=== PATIENT | male | born 1975 | race Caucasian/White ===

== ENCOUNTER 2017-04-22 12:56 | Emergency (ER) | payer MEDICARE, OTHER ==
[2017-04-22] MEDS: ONDANSETRON 4 MG INJ IV ×2 (17:36→21:48)
[2017-04-22] MEDS: morphine 4 MG/ML VIAL IV (17:36)
[2017-04-22 18:03] LABS: ADD MAN DIFF? NO
[2017-04-22 18:05] LABS: ABNORMAL IP MESSAGE 1; BASOPHILS % 0.5 % (0.0-2.0); EOSINOPHILS % 0.2 % (0.0-7.0); HEMATOCRIT 33.4 % (42.0-52.0); HEMOGLOBIN 10.8 g/dl (14.0-18.0); LYMPHOCYTES # 0.3 10^3/ul (0.8-2.9); LYMPHOCYTES % 5.7 % (15.0-51.0); MEAN CORPUSCULAR HEMOGLOBIN 30.7 pg (29.0-33.0); MEAN CORPUSCULAR HGB CONC 32.3 g/dl (32.0-37.0); MEAN CORPUSCULAR VOLUME 94.9 fl (82.0-101.0); MEAN PLATELET VOLUME 11.5 fl (7.4-10.4); MONOCYTE # 0.4 10^3/ul (0.3-0.9); MONOCYTES % 7.3 % (0.0-11.0); NEUTROPHIL # 5.2 10^3/ul (1.6-7.5); PLATELET COUNT 120 10^3/UL (140-415); POSITIVE DIFF @See below; RED BLOOD COUNT 3.52 10^6/ul (4.70-6.10); RED CELL DISTRIBUTION WIDTH 13.3 % (11.5-14.5)
[2017-04-22 18:22] LABS: ALANINE AMINOTRANSFERASE 30 IU/L (13-69); ALBUMIN 4.6 g/dl (3.3-4.9); ALBUMIN/GLOBULIN RATIO 1.48; ALKALINE PHOSPHATASE 166 IU/L (42-121); ANION GAP 23 (8-16); ASPARTATE AMINO TRANSFERASE 20 IU/L (15-46); BILIRUBIN,INDIRECT 0.1 mg/dl (0-1.1); BILIRUBIN,TOTAL 0.1 mg/dl (0.2-1.3); BLOOD UREA NITROGEN 48 mg/dl (7-20); CALCIUM 8.4 mg/dl (8.4-10.2); CARBON DIOXIDE 26 mmol/L (21-31); CHLORIDE 100 mmol/L (97-110); CREATININE 9.37 mg/dl (0.61-1.24); GLUCOSE 107 mg/dl (70-220); LIPASE 38 U/L (23-300); POTASSIUM 4.6 mmol/L (3.5-5.1); SODIUM 144 mmol/L (135-144); TOTAL PROTEIN 7.7 g/dl (6.1-8.1)
[2017-04-22 18:26] LABS: LACTIC ACID 1.4 mmol/L (0.5-2.0)
[2017-04-22 18:34] LABS: TROPONIN-I 0.024 ng/ml (0.00-0.12)
[2017-04-22] MEDS: LIDOCAINE/MYLANTA 40 ML BTL PO (21:49)
== END 2017-04-22 22:54 | disposition home or self-care (01) ==
LOC: FTE 12:56
DX: K21.9 Gastro-esophageal reflux disease without esophagitis (principal); I50.9 Heart failure, unspecified; R16.2 Hepatomegaly with splenomegaly, not elsewhere classified; I10 Essential (primary) hypertension
CPT/HCPCS: 36415; 74176; 80053; 83605; 83690; 84484; 85025; 93005; 96374; 96375; 96376; 99285-25

== ENCOUNTER 2017-06-12 18:39 | Emergency (ER) | payer MEDICARE, OTHER ==
[2017-06-12 22:18] LABS: ADD MAN DIFF? NO
[2017-06-12 22:21] LABS: ABNORMAL IP MESSAGE 1; BASOPHILS % 0.3 % (0.0-2.0); EOSINOPHILS % 0.2 % (0.0-7.0); HEMATOCRIT 25.6 % (42.0-52.0); HEMOGLOBIN 8.7 g/dl (14.0-18.0); LYMPHOCYTES # 0.6 10^3/ul (0.8-2.9); MEAN CORPUSCULAR HEMOGLOBIN 31.6 pg (29.0-33.0); MEAN CORPUSCULAR VOLUME 93.1 fl (82.0-101.0); MEAN PLATELET VOLUME 10.6 fl (7.4-10.4); MONOCYTE # 0.7 10^3/ul (0.3-0.9); MONOCYTES % 6.9 % (0.0-11.0); NEUTROPHIL # 8.4 10^3/ul (1.6-7.5); NEUTROPHILS % 86.2 % (39.0-77.0); PLATELET COUNT 155 10^3/UL (140-415); POSITIVE DIFF @See below; RED BLOOD COUNT 2.75 10^6/ul (4.70-6.10); RED CELL DISTRIBUTION WIDTH 13.5 % (11.5-14.5)
[2017-06-12 22:21] LABS: WHITE BLOOD COUNT 9.7 10^3/ul (4.8-10.8)
[2017-06-12] MEDS: morphine 4 MG/ML VIAL IV ×2 (22:31→22:49)
[2017-06-12] MEDS: ONDANSETRON 4 MG INJ IV ×2 (22:31→22:49)
[2017-06-12] MEDS: SOD CHLORIDE 0.9% 1,000 ML IV (22:32)
[2017-06-12 22:45] LABS: ALANINE AMINOTRANSFERASE 26 IU/L (13-69); ALBUMIN 4.4 g/dl (3.3-4.9); ALBUMIN/GLOBULIN RATIO 1.33; ALKALINE PHOSPHATASE 155 IU/L (42-121); ANION GAP 29 (8-16); ASPARTATE AMINO TRANSFERASE 20 IU/L (15-46); BILIRUBIN,INDIRECT 0.2 mg/dl (0-1.1); BILIRUBIN,TOTAL 0.2 mg/dl (0.2-1.3); BLOOD UREA NITROGEN 60 mg/dl (7-20); CALCIUM 8.2 mg/dl (8.4-10.2); CARBON DIOXIDE 22 mmol/L (21-31); CHLORIDE 98 mmol/L (97-110); CREATININE 9.67 mg/dl (0.61-1.24); GLUCOSE 129 mg/dl (70-220); LIPASE 53 U/L (23-300); SODIUM 144 mmol/L (135-144); TOTAL PROTEIN 7.7 g/dl (6.1-8.1)
[2017-06-12] MEDS: SOD CHLORIDE 0.9% 100 ML (23:01)
[2017-06-12] MEDS ORDERED: IODIXANOL LOCM 100 ML BTL (23:01)
[2017-06-13] MEDS: HYDROmorphONE 0.5 MG/0.5 ML SYG IV (02:14)
[2017-06-13] MEDS: ONDANSETRON 4 MG INJ IV (02:14)
[2017-06-13 03:34] LABS: ADD MAN DIFF? NO
[2017-06-13 03:36] LABS: WHITE BLOOD COUNT 7.6 10^3/ul (4.8-10.8)
[2017-06-13 03:36] LABS: ABNORMAL IP MESSAGE 1; BASOPHILS % 0.1 % (0.0-2.0); HEMATOCRIT 20.6 % (42.0-52.0); LYMPHOCYTES # 0.3 10^3/ul (0.8-2.9); LYMPHOCYTES % 4.1 % (15.0-51.0); MEAN CORPUSCULAR HEMOGLOBIN 30.8 pg (29.0-33.0); MEAN CORPUSCULAR VOLUME 93.2 fl (82.0-101.0); MEAN PLATELET VOLUME 10.3 fl (7.4-10.4); MONOCYTE # 0.4 10^3/ul (0.3-0.9); MONOCYTES % 5.6 % (0.0-11.0); NEUTROPHIL # 6.8 10^3/ul (1.6-7.5); NEUTROPHILS % 89.8 % (39.0-77.0); PLATELET COUNT 134 10^3/UL (140-415); POSITIVE DIFF @See below; RED BLOOD COUNT 2.21 10^6/ul (4.70-6.10); RED CELL DISTRIBUTION WIDTH 13.5 % (11.5-14.5)
[2017-06-13 03:48] LABS: HEMOGLOBIN 6.8 g/dl (14.0-18.0)
[2017-06-13 04:05] LABS: IMMEDIATE SPIN CROSSMATCH 1 1
== END 2017-06-13 05:00 | disposition short-term general hospital (02) ==
LOC: E/R 18:39
DX: R58 Hemorrhage, not elsewhere classified (principal); I10 Essential (primary) hypertension; E11.9 Type 2 diabetes mellitus without complications
CPT/HCPCS: 36415; 36430; 74177; 80053; 83690; 84484; 85025; 86850; 86900; 86901; 86920; 93005; 96374; 96375; 96376; 99291-25

== ENCOUNTER 2017-09-01 22:27 | Emergency (ER) | payer MEDICARE, OTHER ==
[2017-09-01] MEDS: ONDANSETRON 4 MG INJ IV (22:55)
[2017-09-01] MEDS: morphine 4 MG/ML VIAL IV (22:55)
[2017-09-01 22:56] LABS: ADD MAN DIFF? NO
[2017-09-01 23:04] LABS: ABNORMAL IP MESSAGE 1; BASOPHILS % 0.7 % (0.0-2.0); EOSINOPHILS # 0.1 10^3/ul (0.0-0.5); EOSINOPHILS % 1.1 % (0.0-7.0); HEMOGLOBIN 12.8 g/dl (14.0-18.0); LYMPHOCYTES # 0.6 10^3/ul (0.8-2.9); LYMPHOCYTES % 9.8 % (15.0-51.0); MEAN CORPUSCULAR HEMOGLOBIN 32.6 pg (29.0-33.0); MEAN CORPUSCULAR HGB CONC 33.7 g/dl (32.0-37.0); MEAN CORPUSCULAR VOLUME 96.7 fl (82.0-101.0); MEAN PLATELET VOLUME 10.9 fl (7.4-10.4); MONOCYTE # 0.4 10^3/ul (0.3-0.9); MONOCYTES % 7.5 % (0.0-11.0); NEUTROPHIL # 4.6 10^3/ul (1.6-7.5); NEUTROPHILS % 80.5 % (39.0-77.0); PLATELET COUNT 106 10^3/UL (140-415); POSITIVE DIFF @See below; RED BLOOD COUNT 3.93 10^6/ul (4.70-6.10)
[2017-09-01 23:04] LABS: WHITE BLOOD COUNT 5.7 10^3/ul (4.8-10.8)
[2017-09-01 23:28] LABS: ALANINE AMINOTRANSFERASE 27 IU/L (13-69); ALBUMIN 4.3 g/dl (3.3-4.9); ALKALINE PHOSPHATASE 186 IU/L (42-121); ANION GAP 21 (8-16); ASPARTATE AMINO TRANSFERASE 22 IU/L (15-46); BILIRUBIN,INDIRECT 0.4 mg/dl (0-1.1); BILIRUBIN,TOTAL 0.4 mg/dl (0.2-1.3); BLOOD UREA NITROGEN 44 mg/dl (7-20); CALCIUM 8.5 mg/dl (8.4-10.2); CARBON DIOXIDE 25 mmol/L (21-31); CHLORIDE 100 mmol/L (97-110); CREATININE 7.87 mg/dl (0.61-1.24); GLUCOSE 90 mg/dl (70-220); LIPASE 31 U/L (23-300); POTASSIUM 4.5 mmol/L (3.5-5.1); SODIUM 141 mmol/L (135-144); TOTAL PROTEIN 7.6 g/dl (6.1-8.1)
[2017-09-01 23:39] LABS: TROPONIN-I 0.023 ng/ml (0.000-0.120)
[2017-09-02] MEDS: HYDROmorphONE 0.5 MG/0.5 ML SYG IV (00:27)
[2017-09-02] MEDS: ONDANSETRON 4 MG INJ IV (00:27)
== END 2017-09-02 02:24 | disposition home or self-care (01) ==
LOC: E/R 09-02 02:24
DX: K29.70 Gastritis, unspecified, without bleeding (principal); I12.0 Hypertensive chronic kidney disease with stage 5 chronic kidney disease or end stage renal disease; N18.6 End stage renal disease; R40.2142 Coma scale, eyes open, spontaneous, at arrival to emergency department; R40.2252 Coma scale, best verbal response, oriented, at arrival to emergency department; R40.2362 Coma scale, best motor response, obeys commands, at arrival to emergency department
CPT/HCPCS: 36415; 74176; 76705; 80053; 83690; 84484; 85025; 93005; 96374; 96375; 96376; 99285-25

== ENCOUNTER 2018-01-09 22:59 | Inpatient (IN) | payer MEDICARE, OTHER ==
[2018-01-10 00:14] LABS: ABNORMAL IP MESSAGE 1; HEMATOCRIT 33.7 % (42.0-52.0); HEMOGLOBIN 11.3 g/dl (14.0-18.0); MEAN CORPUSCULAR HEMOGLOBIN 31.7 pg (29.0-33.0); MEAN CORPUSCULAR HGB CONC 33.5 g/dl (32.0-37.0); MEAN CORPUSCULAR VOLUME 94.4 fl (82.0-101.0); MEAN PLATELET VOLUME 12.1 fl (7.4-10.4); PLATELET COUNT 92 10^3/UL (140-415); POSITIVE DIFF @See below; RED BLOOD COUNT 3.57 10^6/ul (4.70-6.10); RED CELL DISTRIBUTION WIDTH 13.6 % (11.5-14.5)
[2018-01-10 00:14] LABS: WHITE BLOOD COUNT 11.7 10^3/ul (4.8-10.8)
[2018-01-10] MEDS: ONDANSETRON 4 MG INJ IV ×3 (00:20→20:43)
[2018-01-10] MEDS: morphine 4 MG/ML VIAL IV ×2 (00:21→01:41)
[2018-01-10 00:24] LABS: ADD MAN DIFF? YES
[2018-01-10] MEDS: SODIUM CHLORIDE 0.9% 1L BAG IV* (00:27)
[2018-01-10] MEDS: PANTOPRAZOLE 40 MG INJ IV (00:30)
[2018-01-10] MEDS: CEFEPIME 2GM/50 ML (PMX) 50 ML IVPB (00:35)
[2018-01-10 00:39] LABS: INR 1.88; PT RATIO 1.7
[2018-01-10 00:40] LABS: PARTIAL THROMBOPLASTIN TIME 44.2 Sec (23.0-35.0)
[2018-01-10 00:45] LABS: ANION GAP 19 (5-13); BLOOD UREA NITROGEN 63 mg/dl (7-20); CALCIUM 8.4 mg/dl (8.4-10.2); CARBON DIOXIDE 24 mmol/L (21-31); CHLORIDE 92 mmol/L (97-110); CREATININE 8.41 mg/dl (0.61-1.24); Estimated GFR 7 mL/min (>60); GLUCOSE 108 mg/dl (70-220); POTASSIUM 4.2 mmol/L (3.5-5.1); SODIUM 135 mmol/L (135-144)
[2018-01-10 00:46] LABS: LIPASE < 10 U/L (23-300)
[2018-01-10 00:55] LABS: TROPONIN-I 0.048 ng/ml (0.000-0.120)
[2018-01-10] MEDS: VANCOMYCIN 1 GM (PMX) 250 ML IVPB (00:55)
[2018-01-10 01:30] LABS: ANISOCYTOSIS 1+ (0-0); BAND NEUTROPHILS #M 3.8 10^3/ul (0.0-0.6); BAND NEUTROPHILS % (M) 33 % (0-4); LYMPHOCYTES #M 0.1 10^3/ul (0.8-2.9); LYMPHOCYTES % (M) 1 % (15-51); MONOCYTE #M 1.4 10^3/ul (0.3-0.9); MONOCYTES % (M) 12 % (0-11); PLATELET ESTIMATE DECREASED; POIKILOCYTOSIS 2+ (0-0); POLYCHROMASIA 2+ (0-0); SEG NEUT #M 6.8 10^3/ul (1.6-7.5); SEGMENTED NEUTROPHILS (M) % 54 % (39-77)
[2018-01-10] MEDS: ACETAMINOPHEN 500 MG TAB PO (01:41)
[2018-01-10 02:41] LABS: ALANINE AMINOTRANSFERASE 23 IU/L (13-69); ALKALINE PHOSPHATASE 92 IU/L (42-121); ASPARTATE AMINO TRANSFERASE 27 IU/L (15-46); BILIRUBIN,INDIRECT 0.5 mg/dl (0-1.1); BILIRUBIN,TOTAL 0.5 mg/dl (0.2-1.3); TOTAL PROTEIN 6.9 g/dl (6.1-8.1)
[2018-01-10] MEDS ORDERED: NACL 0.9% 3 ML SYG IV (03:30)
[2018-01-10] MEDS ORDERED: ACETAMINOPHEN 325 MG TAB PO (03:30)
[2018-01-10] MEDS ORDERED: GLUCAGON 1 MG INJ IM (05:15)
[2018-01-10] MEDS ORDERED: DEXTROSE 50% 50 ML SYRINGE IV ×2 (05:15)
[2018-01-10] MEDS ORDERED: GLUCOSE GEL 15 GRAM TUBE BUCCAL (05:15)
[2018-01-10] MEDS ORDERED: GLUCOSE GEL 15 GRAM TUBE PO ×2 (05:15)
[2018-01-10] MEDS: ACETAMINOPHEN 325 MG TAB PO (05:35)
[2018-01-10] MEDS: PANTOPRAZOLE (EC) 40 MG TAB PO (05:35)
[2018-01-10 05:46] LABS: LACTIC ACID 1.6 mmol/L (0.5-2.0)
[2018-01-10] MEDS: INSULIN ASPART [NOVOLOG] 3 ML PEN SC ×4 (08:00→21:00)
[2018-01-10] MEDS ORDERED: HEPARIN 5,000 UNIT/0.5 ML VIAL (08:17)
[2018-01-10] MEDS: CALCIUM ACETATE 667 MG CAP PO ×3 (08:25→17:35)
[2018-01-10] MEDS: ENALAPRIL 5 MG TAB PO (08:25)
[2018-01-10] MEDS: CEFTRIAXONE 1 GM/50 ML (PMX) 50 ML IVPB ×2 (08:26→20:35)
[2018-01-10] MEDS: AZITHROMYCIN 500MG/NS (PMX) 250 ML IVPB (08:36)
[2018-01-10] MEDS ORDERED: NON-FORMULARY/PATIENT OWN MED (Omeprazole* 40 MG) PO (09:00)
[2018-01-10] MEDS ORDERED: HEPARIN SODIUM 5,000 UNIT/ML VIAL SC ×2 (09:00)
[2018-01-10] MEDS: NEBIVOLOL 5 MG TAB PO (09:37)
[2018-01-10] MEDS: HYDROCODONE/APAP (5/325) TAB PO (11:22)
[2018-01-10] MEDS: GUAIFENESIN 20 MG/ML 5ML CUP PO ×3 (14:31→22:52)
[2018-01-10] MEDS: morphine 2 MG INJ IV (16:49)
[2018-01-10 19:03] LABS: HEPATITIS B SURFACE ANTIBODY POSITIVE (NEGATIVE)
[2018-01-11] MEDS: ACCU-CHEK XX (02:00)
[2018-01-11] MEDS: ACETAMINOPHEN 325 MG TAB PO (04:02)
[2018-01-11] MEDS: GUAIFENESIN 20 MG/ML 5ML CUP PO ×2 (04:08→10:47)
[2018-01-11] MEDS: PANTOPRAZOLE (EC) 40 MG TAB PO (05:12)
[2018-01-11 05:25] LABS: ABNORMAL IP MESSAGE 1; HEMATOCRIT 31.2 % (42.0-52.0); HEMOGLOBIN 10.3 g/dl (14.0-18.0); MEAN CORPUSCULAR HEMOGLOBIN 31.1 pg (29.0-33.0); MEAN CORPUSCULAR VOLUME 94.3 fl (82.0-101.0); PLATELET COUNT 65 10^3/UL (140-415); POSITIVE DIFF @See below; RED BLOOD COUNT 3.31 10^6/ul (4.70-6.10); RED CELL DISTRIBUTION WIDTH 13.9 % (11.5-14.5)
[2018-01-11 05:25] LABS: WHITE BLOOD COUNT 9.9 10^3/ul (4.8-10.8)
[2018-01-11 05:39] LABS: ADD MAN DIFF? YES
[2018-01-11 05:55] LABS: ALANINE AMINOTRANSFERASE 134 IU/L (13-69); ALBUMIN 3.7 g/dl (3.3-4.9); ALBUMIN/GLOBULIN RATIO 1.19; ALKALINE PHOSPHATASE 97 IU/L (42-121); ANION GAP 22 (5-13); ASPARTATE AMINO TRANSFERASE 159 IU/L (15-46); BILIRUBIN,INDIRECT 0.3 mg/dl (0-1.1); BLOOD UREA NITROGEN 90 mg/dl (7-20); CALCIUM 8.1 mg/dl (8.4-10.2); CARBON DIOXIDE 18 mmol/L (21-31); CHLORIDE 96 mmol/L (97-110); GLUCOSE 91 mg/dl (70-220); MAGNESIUM 2.1 mg/dl (1.7-2.5); PHOSPHORUS 8.1 mg/dl (2.5-4.9); POTASSIUM 5.3 mmol/L (3.5-5.1); SODIUM 136 mmol/L (135-144); TOTAL PROTEIN 6.8 g/dl (6.1-8.1)
[2018-01-11 06:01] LABS: Estimated GFR 6 mL/min (>60)
[2018-01-11 06:20] LABS: CREATININE 9.14 mg/dl (0.61-1.24)
[2018-01-11 07:30] LABS: ANISOCYTOSIS 3+ (0-0); BAND NEUTROPHILS #M 1.2 10^3/ul (0.0-0.6); BAND NEUTROPHILS % (M) 13 % (0-4); BASOPHILS % (M) 1 % (0-2); LYMPHOCYTES % (M) 1 % (15-51); MONOCYTE #M 0.1 10^3/ul (0.3-0.9); MONOCYTES % (M) 2 % (0-11); PLATELET ESTIMATE SIG DECREASED; PLATELET MORPHOLOGY COMMENT @See below; POIKILOCYTOSIS 1+ (0-0); SEG NEUT #M 8.3 10^3/ul (1.6-7.5); SEGMENTED NEUTROPHILS (M) % 83 % (39-77)
[2018-01-11] MEDS: CALCIUM ACETATE 667 MG CAP PO ×3 (07:35→16:43)
[2018-01-11] MEDS: INSULIN ASPART [NOVOLOG] 3 ML PEN SC (08:00)
[2018-01-11] MEDS: ENALAPRIL 5 MG TAB PO (08:35)
[2018-01-11] MEDS: NEBIVOLOL 5 MG TAB PO (08:35)
[2018-01-11] MEDS: CEFTRIAXONE 1 GM/50 ML (PMX) 50 ML IVPB ×2 (08:36→20:42)
[2018-01-11] MEDS: AZITHROMYCIN 500MG/NS (PMX) 250 ML IVPB (08:36)
[2018-01-11 10:19] LABS: HEPATITIS B SURFACE ANTIGEN NEGATIVE (NEGATIVE)
[2018-01-11] MEDS ORDERED: METOCLOPRAMIDE 10 MG INJ IV (11:30)
[2018-01-11 11:37] LABS: HEMOGLOBIN A1C 5.1 % (0-5.9)
[2018-01-11] MEDS: CEPASTAT LOZENGE MT (13:56)
[2018-01-11] MEDS: GUAIFENESIN/DM 5ML CUP PO (16:05)
[2018-01-11] MEDS: ALBUTEROL/IPRATROPIUM (NEB) 3 ML AMP HHN ×2 (16:24→19:56)
[2018-01-12] MEDS: ALBUTEROL/IPRATROPIUM (NEB) 3 ML AMP HHN ×4 (00:26→23:18)
[2018-01-12] MEDS: PANTOPRAZOLE (EC) 40 MG TAB PO (05:19)
[2018-01-12 05:49] LABS: ABNORMAL IP MESSAGE 1; HEMATOCRIT 30.5 % (42.0-52.0); MEAN CORPUSCULAR HEMOGLOBIN 30.7 pg (29.0-33.0); MEAN CORPUSCULAR HGB CONC 32.8 g/dl (32.0-37.0); MEAN CORPUSCULAR VOLUME 93.6 fl (82.0-101.0); MEAN PLATELET VOLUME 12.8 fl (7.4-10.4); PLATELET COUNT 61 10^3/UL (140-415); POSITIVE DIFF @See below; RED BLOOD COUNT 3.26 10^6/ul (4.70-6.10)
[2018-01-12 05:49] LABS: WHITE BLOOD COUNT 7.3 10^3/ul (4.8-10.8)
[2018-01-12 05:56] LABS: ADD MAN DIFF? YES
[2018-01-12 06:24] LABS: ANION GAP 19 (5-13); BLOOD UREA NITROGEN 64 mg/dl (7-20); CALCIUM 8.5 mg/dl (8.4-10.2); CARBON DIOXIDE 22 mmol/L (21-31); CHLORIDE 96 mmol/L (97-110); GLUCOSE 105 mg/dl (70-220); POTASSIUM 4.2 mmol/L (3.5-5.1); SODIUM 137 mmol/L (135-144)
[2018-01-12 06:30] LABS: Estimated GFR 9 mL/min (>60)
[2018-01-12 06:31] LABS: CREATININE 6.79 mg/dl (0.61-1.24)
[2018-01-12] MEDS: CALCIUM ACETATE 667 MG CAP PO ×3 (07:35→17:35)
[2018-01-12 07:36] LABS: ANISOCYTOSIS 1+ (0-0); BURR CELLS 2+ (0-0); LYMPHOCYTES #M 0.5 10^3/ul (0.8-2.9); LYMPHOCYTES % (M) 8 % (15-51); MONOCYTE #M 0.5 10^3/ul (0.3-0.9); MONOCYTES % (M) 7 % (0-11); OVALOCYTES 1+ (0-0); PLATELET ESTIMATE SIG DECREASED; POIKILOCYTOSIS 3+ (0-0); POLYCHROMASIA 1+ (0-0); REACTIVE LYMPHOCYTES #M 0.1 10^3/ul (0.0-0.0); REACTIVE LYMPHOCYTES% (M) 2 % (0-0); SEGMENTED NEUTROPHILS (M) % 83 % (39-77); SMUDGE%M 6 % (0-0)
[2018-01-12] MEDS: NEBIVOLOL 5 MG TAB PO (08:33)
[2018-01-12] MEDS: ENALAPRIL 5 MG TAB PO (08:33)
[2018-01-12] MEDS: CEFTRIAXONE 1 GM/50 ML (PMX) 50 ML IVPB (08:34)
[2018-01-12] MEDS: AZITHROMYCIN 500MG/NS (PMX) 250 ML IVPB (09:21)
[2018-01-12] MEDS: PIPER-TAZO 2.25 GM (PMX) 50 ML IVPB ×2 (19:51→22:49)
[2018-01-12] MEDS: GUAIFENESIN/DM 5ML CUP PO (22:57)
[2018-01-13] MEDS: ALBUTEROL/IPRATROPIUM (NEB) 3 ML AMP HHN ×3 (03:57→13:07)
[2018-01-13 05:13] LABS: ADD MAN DIFF? NO
[2018-01-13 05:23] LABS: WHITE BLOOD COUNT 7.5 10^3/ul (4.8-10.8)
[2018-01-13 05:23] LABS: ABNORMAL IP MESSAGE 1; BASOPHILS % 0.4 % (0.0-2.0); EOSINOPHILS % 0.1 % (0.0-7.0); HEMATOCRIT 27.8 % (42.0-52.0); HEMOGLOBIN 9.4 g/dl (14.0-18.0); LYMPHOCYTES # 0.5 10^3/ul (0.8-2.9); LYMPHOCYTES % 6.1 % (15.0-51.0); MEAN CORPUSCULAR HGB CONC 33.8 g/dl (32.0-37.0); MEAN CORPUSCULAR VOLUME 91.7 fl (82.0-101.0); MEAN PLATELET VOLUME 13.4 fl (7.4-10.4); MONOCYTE # 0.8 10^3/ul (0.3-0.9); MONOCYTES % 10.7 % (0.0-11.0); NEUTROPHIL # 6.2 10^3/ul (1.6-7.5); NEUTROPHILS % 81.6 % (39.0-77.0); PLATELET COUNT 53 10^3/UL (140-415); POSITIVE DIFF @See below; RED BLOOD COUNT 3.03 10^6/ul (4.70-6.10); RED CELL DISTRIBUTION WIDTH 14.4 % (11.5-14.5)
[2018-01-13 05:43] LABS: ANION GAP 15 (5-13); BLOOD UREA NITROGEN 41 mg/dl (7-20); CALCIUM 8.4 mg/dl (8.4-10.2); CARBON DIOXIDE 24 mmol/L (21-31); CHLORIDE 97 mmol/L (97-110); CREATININE 4.92 mg/dl (0.61-1.24); Estimated GFR 13 mL/min (>60); GLUCOSE 112 mg/dl (70-220); MAGNESIUM 2.1 mg/dl (1.7-2.5); PHOSPHORUS 4.4 mg/dl (2.5-4.9); SODIUM 136 mmol/L (135-144)
[2018-01-13] MEDS: PIPER-TAZO 2.25 GM (PMX) 50 ML IVPB ×2 (05:46→14:48)
[2018-01-13] MEDS: PANTOPRAZOLE (EC) 40 MG TAB PO (05:46)
[2018-01-13] MEDS: CALCIUM ACETATE 667 MG CAP PO ×2 (07:35→11:30)
[2018-01-13] MEDS: NEBIVOLOL 5 MG TAB PO (09:00)
[2018-01-13] MEDS: ENALAPRIL 5 MG TAB PO (09:00)
== END 2018-01-13 16:05 | disposition home or self-care (01) | DRG 871 ==
LOC: E/R 22:59 → PP2 01-10 03:09
PROC: 5A1D70Z Performance of Urinary Filtration, Intermittent, Less than 6 Hours Per Day (ICD-10-PCS; 2018-01-11)
PROC: 5A1D70Z Performance of Urinary Filtration, Intermittent, Less than 6 Hours Per Day (ICD-10-PCS; 2018-01-12)
PROC: 5A1D70Z Performance of Urinary Filtration, Intermittent, Less than 6 Hours Per Day (ICD-10-PCS; principal; 2018-01-13)
DX: A41.9 Sepsis, unspecified organism (principal); J18.9 Pneumonia, unspecified organism; N18.6 End stage renal disease; I12.0 Hypertensive chronic kidney disease with stage 5 chronic kidney disease or end stage renal disease; R19.7 Diarrhea, unspecified; D63.1 Anemia in chronic kidney disease; Z99.2 Dependence on renal dialysis
CPT/HCPCS: 36415; 71045; 71250; 74176; 80048; 80053; 80076; 82962; 83036; 83605; 83690; 83735; 84100; 84484; 85025; 85610; 85730; 86706; 86850; 86900; 86901; 87040; 87045; 87075; 87340; 87400; 90935; 93005; 94640; 94664; 96374; 96375; 96376; 99291-25

== ENCOUNTER 2018-01-21 21:32 | Observation (INO) | payer MEDICARE, OTHER ==
[2018-01-21] MEDS: SOD CHLORIDE 0.9% 500 ML IV (22:21)
[2018-01-21] MEDS: LORAZEPAM 2 MG INJ IV (22:22)
[2018-01-21] MEDS: ONDANSETRON 4 MG INJ IV (22:22)
[2018-01-21] MEDS: morphine 4 MG/ML VIAL IV (22:23)
[2018-01-21 22:27] LABS: ADD MAN DIFF? NO
[2018-01-21 22:28] LABS: WHITE BLOOD COUNT 9.6 10^3/ul (4.8-10.8)
[2018-01-21 22:28] LABS: BASOPHILS % 0.3 % (0.0-2.0); EOSINOPHILS % 0.3 % (0.0-7.0); HEMATOCRIT 29.8 % (42.0-52.0); HEMOGLOBIN 9.9 g/dl (14.0-18.0); LYMPHOCYTES # 0.8 10^3/ul (0.8-2.9); LYMPHOCYTES % 8.8 % (15.0-51.0); MEAN CORPUSCULAR HEMOGLOBIN 30.8 pg (29.0-33.0); MEAN CORPUSCULAR HGB CONC 33.2 g/dl (32.0-37.0); MEAN CORPUSCULAR VOLUME 92.8 fl (82.0-101.0); MEAN PLATELET VOLUME 10.6 fl (7.4-10.4); MONOCYTES % 10.3 % (0.0-11.0); NEUTROPHIL # 7.6 10^3/ul (1.6-7.5); NEUTROPHILS % 79.7 % (39.0-77.0); PLATELET COUNT 226 10^3/UL (140-415); RED BLOOD COUNT 3.21 10^6/ul (4.70-6.10); RED CELL DISTRIBUTION WIDTH 14.9 % (11.5-14.5)
[2018-01-21 22:47] LABS: INR 1.07; PT RATIO 1.1
[2018-01-21 22:48] LABS: PARTIAL THROMBOPLASTIN TIME 34.4 Sec (23.0-35.0)
[2018-01-21 22:53] LABS: ALANINE AMINOTRANSFERASE 69 IU/L (13-69); ALBUMIN/GLOBULIN RATIO 1.25; ALKALINE PHOSPHATASE 202 IU/L (42-121); ANION GAP 21 (5-13); ASPARTATE AMINO TRANSFERASE 34 IU/L (15-46); BILIRUBIN,INDIRECT 0.6 mg/dl (0-1.1); BILIRUBIN,TOTAL 0.6 mg/dl (0.2-1.3); BLOOD UREA NITROGEN 53 mg/dl (7-20); CALCIUM 8.5 mg/dl (8.4-10.2); CARBON DIOXIDE 20 mmol/L (21-31); CHLORIDE 94 mmol/L (97-110); CREATININE 7.22 mg/dl (0.61-1.24); Estimated GFR 8 mL/min (>60); GLUCOSE 103 mg/dl (70-220); LIPASE 645 U/L (23-300); POTASSIUM 4.1 mmol/L (3.5-5.1); SODIUM 135 mmol/L (135-144); TOTAL PROTEIN 7.2 g/dl (6.1-8.1)
[2018-01-22] MEDS: ONDANSETRON 4 MG INJ IV ×3 (00:59→10:30)
[2018-01-22] MEDS: LORAZEPAM 2 MG INJ IV (00:59)
[2018-01-22] MEDS ORDERED: NACL 0.9% 3 ML SYG IV (04:00)
[2018-01-22] MEDS ORDERED: FAMOTIDINE 20 MG TAB PO (04:00)
[2018-01-22] MEDS ORDERED: ACETAMINOPHEN 325 MG TAB PO (04:00)
[2018-01-22] MEDS ORDERED: DOCUSATE SODIUM 100 MG CAP PO (04:00)
[2018-01-22] MEDS ORDERED: ONDANSETRON 4 MG TAB PO (04:00)
[2018-01-22] MEDS: morphine 2 MG INJ IV ×2 (05:50→12:01)
[2018-01-22 06:27] LABS: ANION GAP 17 (5-13); BLOOD UREA NITROGEN 55 mg/dl (7-20); CALCIUM 8.2 mg/dl (8.4-10.2); CARBON DIOXIDE 22 mmol/L (21-31); CHLORIDE 96 mmol/L (97-110); CREATININE 7.84 mg/dl (0.61-1.24); Estimated GFR 8 mL/min (>60); GLUCOSE 85 mg/dl (70-220); POTASSIUM 4.8 mmol/L (3.5-5.1); SODIUM 135 mmol/L (135-144)
[2018-01-22 06:36] LABS: FREE THYROXINE INDEX (Calc) 3.22 ug/ml (0.65-3.89); T3 UPTAKE 38.8 % (23.5-40.5); T4 (THYROXINE) 8.3 ug/dl (5.5-11.0)
[2018-01-22] MEDS: HEPARIN 5,000 UNIT/0.5 ML VIAL SC (06:52)
[2018-01-22 07:17] LABS: HEMOGLOBIN A1C 5.1 % (0-5.9)
[2018-01-22] MEDS: CALCIUM ACETATE 667 MG CAP PO ×3 (07:35→17:06)
[2018-01-22] MEDS: MULTIVIT/CA CARB/B CMPLX/FA TAB PO (08:44)
[2018-01-22] MEDS: FAMOTIDINE 20 MG INJ IV (08:44)
[2018-01-22] MEDS ORDERED: IOHEXOL 300MG/ML 150 ML BTL (09:07)
[2018-01-22] MEDS: ONDANSETRON 4 MG INJ (10:15)
[2018-01-22] MEDS ORDERED: METOCLOPRAMIDE 10 MG INJ IV ×2 (10:30)
[2018-01-22] MEDS ORDERED: LEVOFLOXACIN 750 MG TABLET PO (10:30)
[2018-01-22] MEDS: NEBIVOLOL 5 MG TAB PO (12:01)
[2018-01-22] MEDS: LEVOFLOXACIN 750MG/D5W (PMX) 150 ML IVPB (12:46)
[2018-01-23 05:07] LABS: ADD MAN DIFF? NO
[2018-01-23 05:12] LABS: WHITE BLOOD COUNT 9.8 10^3/ul (4.8-10.8)
[2018-01-23 05:12] LABS: BASOPHIL # 0.1 10^3/ul (0.0-0.1); BASOPHILS % 0.7 % (0.0-2.0); EOSINOPHILS % 0.4 % (0.0-7.0); HEMATOCRIT 27.2 % (42.0-52.0); LYMPHOCYTES # 0.6 10^3/ul (0.8-2.9); LYMPHOCYTES % 6.4 % (15.0-51.0); MEAN CORPUSCULAR HEMOGLOBIN 31.1 pg (29.0-33.0); MEAN CORPUSCULAR HGB CONC 33.1 g/dl (32.0-37.0); MEAN CORPUSCULAR VOLUME 94.1 fl (82.0-101.0); MEAN PLATELET VOLUME 10.8 fl (7.4-10.4); MONOCYTE # 0.9 10^3/ul (0.3-0.9); MONOCYTES % 9.3 % (0.0-11.0); NEUTROPHIL # 8.1 10^3/ul (1.6-7.5); NEUTROPHILS % 82.7 % (39.0-77.0); PLATELET COUNT 223 10^3/UL (140-415); RED BLOOD COUNT 2.89 10^6/ul (4.70-6.10)
[2018-01-23] MEDS: PANTOPRAZOLE 40 MG INJ IV (05:16)
[2018-01-23 05:33] LABS: ANION GAP 16 (5-13); BLOOD UREA NITROGEN 66 mg/dl (7-20); CALCIUM 8.1 mg/dl (8.4-10.2); CARBON DIOXIDE 20 mmol/L (21-31); CHLORIDE 98 mmol/L (97-110); CREATININE 9.43 mg/dl (0.61-1.24); Estimated GFR 6 mL/min (>60); GLUCOSE 83 mg/dl (70-220); POTASSIUM 5.7 mmol/L (3.5-5.1); SODIUM 134 mmol/L (135-144)
[2018-01-23 05:36] LABS: PHOSPHORUS 9.4 mg/dl (2.5-4.9)
[2018-01-23] MEDS ORDERED: PANTOPRAZOLE (EC) 40 MG TAB PO (06:00)
[2018-01-23] MEDS: CALCIUM ACETATE 667 MG CAP PO ×3 (07:35→17:35)
[2018-01-23] MEDS: SEVELAMER CARBONATE 800 MG TABLET PO ×2 (11:30→17:35)
[2018-01-23] MEDS: NEBIVOLOL 5 MG TAB PO (18:00)
[2018-01-23] MEDS: MULTIVIT/CA CARB/B CMPLX/FA TAB PO (18:01)
== END 2018-01-23 19:02 | disposition home or self-care (01) ==
LOC: E/R 21:32 → PP2 01-22 03:46
DX: R11.2 Nausea with vomiting, unspecified (principal); J69.0 Pneumonitis due to inhalation of food and vomit; I12.0 Hypertensive chronic kidney disease with stage 5 chronic kidney disease or end stage renal disease; N18.6 End stage renal disease; E11.22 Type 2 diabetes mellitus with diabetic chronic kidney disease; Z99.2 Dependence on renal dialysis; R18.8 Other ascites; K29.70 Gastritis, unspecified, without bleeding; K20.9 Esophagitis, unspecified; D64.9 Anemia, unspecified; M89.8X9 Other specified disorders of bone, unspecified site; R58 Hemorrhage, not elsewhere classified
CPT/HCPCS: 36415; 71045; 74176; 74250; 80048; 80053; 83036; 83690; 83735; 84100; 84436; 84479; 85025; 85610; 85730; 87081; 90935; 93005; 96374; 96375; 96376; 99285-25; G0378

== ENCOUNTER 2018-09-24 22:34 | Inpatient (IN) | payer MEDICARE, OTHER ==
[2018-09-24 23:40] LABS: ADD MAN DIFF? NO
[2018-09-24 23:46] LABS: WHITE BLOOD COUNT 6.3 10^3/ul (4.8-10.8)
[2018-09-24 23:46] LABS: BASOPHILS % 0.6 % (0.0-2.0); EOSINOPHILS # 0.1 10^3/ul (0.0-0.5); EOSINOPHILS % 1.3 % (0.0-7.0); HEMATOCRIT 35.3 % (42.0-52.0); LYMPHOCYTES # 0.8 10^3/ul (0.8-2.9); LYMPHOCYTES % 13.2 % (15.0-51.0); MEAN CORPUSCULAR HEMOGLOBIN 31.9 pg (29.0-33.0); MEAN CORPUSCULAR VOLUME 93.9 fl (82.0-101.0); MEAN PLATELET VOLUME 10.6 fl (7.4-10.4); MONOCYTE # 0.8 10^3/ul (0.3-0.9); MONOCYTES % 12.4 % (0.0-11.0); NEUTROPHIL # 4.5 10^3/ul (1.6-7.5); NEUTROPHILS % 72.2 % (39.0-77.0); PLATELET COUNT 136 10^3/UL (140-415); RED BLOOD COUNT 3.76 10^6/ul (4.70-6.10)
[2018-09-25 00:02] LABS: ALANINE AMINOTRANSFERASE 26 IU/L (13-69); ALBUMIN 4.7 g/dl (3.3-4.9); ALBUMIN/GLOBULIN RATIO 1.38; ALKALINE PHOSPHATASE 138 IU/L (42-121); ANION GAP 20 (5-13); ASPARTATE AMINO TRANSFERASE 17 IU/L (15-46); BILIRUBIN,INDIRECT 0.3 mg/dl (0-1.1); BILIRUBIN,TOTAL 0.3 mg/dl (0.2-1.3); BLOOD UREA NITROGEN 64 mg/dl (7-20); CALCIUM 7.3 mg/dl (8.4-10.2); CARBON DIOXIDE 22 mmol/L (21-31); CHLORIDE 97 mmol/L (97-110); CREATININE 9.53 mg/dl (0.61-1.24); Estimated GFR 6 mL/min (>60); GLUCOSE 102 mg/dl (70-220); POTASSIUM 4.7 mmol/L (3.5-5.1); SODIUM 139 mmol/L (135-144); TOTAL PROTEIN 8.1 g/dl (6.1-8.1)
[2018-09-25 00:14] LABS: TROPONIN-I 0.031 ng/ml (0.000-0.120)
[2018-09-25] MEDS: HYDROCODONE/APAP (5/325) TAB PO (00:25)
[2018-09-25] MEDS: LORAZEPAM 1 MG TAB PO ×3 (00:30→06:06)
[2018-09-25] MEDS: CALCIUM GLUCONATE 10% 1 GM in DEXTROSE 5% 100 ML IVPB (00:51)
[2018-09-25 00:55] LABS: MAGNESIUM 2.2 mg/dl (1.7-2.5)
[2018-09-25] MEDS ORDERED: ONDANSETRON 4 MG INJ IV ×3 (01:30→02:00)
[2018-09-25] MEDS ORDERED: ACETAMINOPHEN 325 MG TAB PO ×3 (01:30→02:00)
[2018-09-25] MEDS ORDERED: NACL 0.9% 3 ML SYG IV (02:00)
[2018-09-25] MEDS ORDERED: BISACODYL (EC) 5 MG TAB PO (02:00)
[2018-09-25] MEDS ORDERED: DOCUSATE SODIUM 100 MG CAP PO (02:00)
[2018-09-25] MEDS: SEVELAMER CARBONATE 800 MG TABLET PO (02:20)
[2018-09-25] MEDS: ALUMINUM HYDROXIDE 30 ML CUP PO ×2 (02:21→02:32)
[2018-09-25] MEDS: HEPARIN 5,000 UNIT/1 ML VIAL SC ×3 (02:21→13:36)
[2018-09-25] MEDS ORDERED: hydrALAzine 20 MG INJ IV (02:30)
[2018-09-25] MEDS: SOD CHLORIDE 0.9% 250 ML IV (02:31)
[2018-09-25] MEDS ORDERED: LORAZEPAM 0.5 MG TAB PO (05:00)
[2018-09-25 05:49] LABS: ADD MAN DIFF? NO
[2018-09-25 05:51] LABS: BASOPHILS % 0.5 % (0.0-2.0); EOSINOPHILS # 0.1 10^3/ul (0.0-0.5); HEMATOCRIT 33.5 % (42.0-52.0); HEMOGLOBIN 11.2 g/dl (14.0-18.0); LYMPHOCYTES % 16.1 % (15.0-51.0); MEAN CORPUSCULAR HEMOGLOBIN 31.5 pg (29.0-33.0); MEAN CORPUSCULAR HGB CONC 33.4 g/dl (32.0-37.0); MEAN CORPUSCULAR VOLUME 94.1 fl (82.0-101.0); MEAN PLATELET VOLUME 10.6 fl (7.4-10.4); MONOCYTE # 0.7 10^3/ul (0.3-0.9); MONOCYTES % 12.2 % (0.0-11.0); NEUTROPHIL # 4.1 10^3/ul (1.6-7.5); NEUTROPHILS % 68.9 % (39.0-77.0); PLATELET COUNT 126 10^3/UL (140-415); RED BLOOD COUNT 3.56 10^6/ul (4.70-6.10); RED CELL DISTRIBUTION WIDTH 14.1 % (11.5-14.5)
[2018-09-25] MEDS: PANTOPRAZOLE (EC) 40 MG TAB PO (06:06)
[2018-09-25 06:20] LABS: ALANINE AMINOTRANSFERASE 26 IU/L (13-69); ALBUMIN 4.2 g/dl (3.3-4.9); ALBUMIN/GLOBULIN RATIO 1.35; ALKALINE PHOSPHATASE 114 IU/L (42-121); ANION GAP 18 (5-13); ASPARTATE AMINO TRANSFERASE 16 IU/L (15-46); BILIRUBIN,INDIRECT 0.3 mg/dl (0-1.1); BILIRUBIN,TOTAL 0.3 mg/dl (0.2-1.3); BLOOD UREA NITROGEN 66 mg/dl (7-20); CALCIUM 7.2 mg/dl (8.4-10.2); CARBON DIOXIDE 23 mmol/L (21-31); CHLORIDE 97 mmol/L (97-110); CHOL/HDL RATIO 3.4 RATIO; CHOLESTEROL 139 mg/dl (100-200); CREATININE 9.82 mg/dl (0.61-1.24); Estimated GFR 6 mL/min (>60); GLUCOSE 82 mg/dl (70-220); HDL CHOLESTEROL 40 mg/dl (27-67); LDL CHOLESTEROL,CALCULATED 78 mg/dl; MAGNESIUM 2.2 mg/dl (1.7-2.5); PHOSPHORUS 9.9 mg/dl (2.5-4.9); POTASSIUM 4.2 mmol/L (3.5-5.1); SODIUM 138 mmol/L (135-144); TOTAL PROTEIN 7.3 g/dl (6.1-8.1); TRIGLYCERIDES 107 mg/dl (0-149)
[2018-09-25 07:10] LABS: HEMOGLOBIN A1C 5.1 % (0-5.9)
[2018-09-25] MEDS: NEBIVOLOL 5 MG TAB PO (09:00)
[2018-09-25] MEDS: MULTIVIT/CA CARB/B CMPLX/FA TAB PO (09:22)
[2018-09-25 10:21] LABS: PARATHYROID HORMONE 873.8 pg/ml (24.0-73.0)
[2018-09-25 10:41] LABS: HEPATITIS B SURFACE ANTIGEN NEGATIVE (NEGATIVE)
[2018-09-25] MEDS: morphine 2 MG INJ IV (14:58)
[2018-09-25 15:48] LABS: LIPASE 76 U/L (23-300)
[2018-09-25 15:48] LABS: AMYLASE 110 U/L (11-123)
[2018-09-26] MEDS: HEPARIN 5,000 UNIT/1 ML VIAL SC ×4 (01:54→22:00)
[2018-09-26] MEDS: LORAZEPAM 1 MG TAB PO (04:14)
[2018-09-26 06:07] LABS: ADD MAN DIFF? NO
[2018-09-26 06:13] LABS: WHITE BLOOD COUNT 6.2 10^3/ul (4.8-10.8)
[2018-09-26 06:13] LABS: BASOPHILS % 0.3 % (0.0-2.0); EOSINOPHILS # 0.1 10^3/ul (0.0-0.5); HEMATOCRIT 32.4 % (42.0-52.0); HEMOGLOBIN 10.9 g/dl (14.0-18.0); LYMPHOCYTES # 0.7 10^3/ul (0.8-2.9); LYMPHOCYTES % 10.6 % (15.0-51.0); MEAN CORPUSCULAR HEMOGLOBIN 32.1 pg (29.0-33.0); MEAN CORPUSCULAR HGB CONC 33.6 g/dl (32.0-37.0); MEAN CORPUSCULAR VOLUME 95.3 fl (82.0-101.0); MEAN PLATELET VOLUME 11.1 fl (7.4-10.4); MONOCYTE # 0.7 10^3/ul (0.3-0.9); MONOCYTES % 11.2 % (0.0-11.0); NEUTROPHIL # 4.7 10^3/ul (1.6-7.5); NEUTROPHILS % 76.6 % (39.0-77.0); PLATELET COUNT 124 10^3/UL (140-415); RED CELL DISTRIBUTION WIDTH 14.2 % (11.5-14.5)
[2018-09-26] MEDS: PANTOPRAZOLE (EC) 40 MG TAB PO (06:27)
[2018-09-26 06:43] LABS: ALANINE AMINOTRANSFERASE 23 IU/L (13-69); ALBUMIN 4.1 g/dl (3.3-4.9); ALBUMIN/GLOBULIN RATIO 1.28; ALKALINE PHOSPHATASE 124 IU/L (42-121); ANION GAP 12 (5-13); ASPARTATE AMINO TRANSFERASE 17 IU/L (15-46); BILIRUBIN,INDIRECT 0.4 mg/dl (0-1.1); BILIRUBIN,TOTAL 0.4 mg/dl (0.2-1.3); BLOOD UREA NITROGEN 37 mg/dl (7-20); CARBON DIOXIDE 28 mmol/L (21-31); CHLORIDE 98 mmol/L (97-110); CREATININE 6.79 mg/dl (0.61-1.24); Estimated GFR 9 mL/min (>60); GLUCOSE 93 mg/dl (70-220); PHOSPHORUS 5.4 mg/dl (2.5-4.9); SODIUM 138 mmol/L (135-144); TOTAL PROTEIN 7.3 g/dl (6.1-8.1)
[2018-09-26] MEDS: MULTIVIT/CA CARB/B CMPLX/FA TAB PO (08:45)
[2018-09-26] MEDS: NEBIVOLOL 5 MG TAB PO (08:46)
[2018-09-26] MEDS: SEVELAMER CARBONATE 800 MG TABLET PO ×3 (08:46→17:46)
[2018-09-26] MEDS ORDERED: DIPHENHYDRAMINE 25 MG CAP PO (10:30)
[2018-09-26] MEDS: DIPHENHYDRAMINE 1%/ZINC 28.3 GM CR TOP ×2 (17:46→17:47)
[2018-09-26] MEDS: ZOLPIDEM 5 MG TAB PO (22:18)
[2018-09-27] MEDS: LORAZEPAM 1 MG TAB PO ×2 (02:17→23:56)
[2018-09-27 05:58] LABS: ADD MAN DIFF? NO
[2018-09-27] MEDS: DIPHENHYDRAMINE 1%/ZINC 28.3 GM CR TOP ×4 (06:00→18:00)
[2018-09-27] MEDS: HEPARIN 5,000 UNIT/1 ML VIAL SC (06:00)
[2018-09-27 06:07] LABS: WHITE BLOOD COUNT 5.3 10^3/ul (4.8-10.8)
[2018-09-27 06:07] LABS: BASOPHILS % 0.6 % (0.0-2.0); EOSINOPHILS # 0.1 10^3/ul (0.0-0.5); EOSINOPHILS % 1.1 % (0.0-7.0); HEMATOCRIT 32.6 % (42.0-52.0); HEMOGLOBIN 10.6 g/dl (14.0-18.0); LYMPHOCYTES # 0.9 10^3/ul (0.8-2.9); LYMPHOCYTES % 17.6 % (15.0-51.0); MEAN CORPUSCULAR HGB CONC 32.5 g/dl (32.0-37.0); MEAN CORPUSCULAR VOLUME 98.5 fl (82.0-101.0); MEAN PLATELET VOLUME 11.7 fl (7.4-10.4); MONOCYTE # 0.7 10^3/ul (0.3-0.9); MONOCYTES % 12.4 % (0.0-11.0); NEUTROPHIL # 3.6 10^3/ul (1.6-7.5); NEUTROPHILS % 67.9 % (39.0-77.0); PLATELET COUNT 113 10^3/UL (140-415); RED BLOOD COUNT 3.31 10^6/ul (4.70-6.10); RED CELL DISTRIBUTION WIDTH 14.6 % (11.5-14.5)
[2018-09-27 06:35] LABS: ALANINE AMINOTRANSFERASE 22 IU/L (13-69); ALBUMIN 4.2 g/dl (3.3-4.9); ALKALINE PHOSPHATASE 108 IU/L (42-121); ANION GAP 16 (5-13); ASPARTATE AMINO TRANSFERASE 17 IU/L (15-46); BILIRUBIN,INDIRECT 0.3 mg/dl (0-1.1); BILIRUBIN,TOTAL 0.3 mg/dl (0.2-1.3); BLOOD UREA NITROGEN 62 mg/dl (7-20); CALCIUM 7.9 mg/dl (8.4-10.2); CARBON DIOXIDE 25 mmol/L (21-31); CHLORIDE 99 mmol/L (97-110); CREATININE 9.58 mg/dl (0.61-1.24); Estimated GFR 6 mL/min (>60); GLUCOSE 87 mg/dl (70-220); PHOSPHORUS 8.7 mg/dl (2.5-4.9); POTASSIUM 5.2 mmol/L (3.5-5.1); SODIUM 140 mmol/L (135-144); TOTAL PROTEIN 7.2 g/dl (6.1-8.1)
[2018-09-27] MEDS: PANTOPRAZOLE (EC) 40 MG TAB PO (06:37)
[2018-09-27] MEDS: MULTIVIT/CA CARB/B CMPLX/FA TAB PO (08:24)
[2018-09-27] MEDS: NEBIVOLOL 5 MG TAB PO (08:24)
[2018-09-27] MEDS: SEVELAMER CARBONATE 800 MG TABLET PO ×3 (08:24→18:00)
[2018-09-28] MEDS: DIPHENHYDRAMINE 1%/ZINC 28.3 GM CR TOP ×3 (00:17→12:36)
[2018-09-28 05:26] LABS: ADD MAN DIFF? NO
[2018-09-28 05:30] LABS: WHITE BLOOD COUNT 4.9 10^3/ul (4.8-10.8)
[2018-09-28 05:31] LABS: BASOPHILS % 0.4 % (0.0-2.0); EOSINOPHILS # 0.1 10^3/ul (0.0-0.5); EOSINOPHILS % 1.8 % (0.0-7.0); HEMATOCRIT 29.7 % (42.0-52.0); HEMOGLOBIN 9.9 g/dl (14.0-18.0); LYMPHOCYTES # 0.6 10^3/ul (0.8-2.9); LYMPHOCYTES % 12.7 % (15.0-51.0); MEAN CORPUSCULAR HEMOGLOBIN 32.7 pg (29.0-33.0); MEAN CORPUSCULAR HGB CONC 33.3 g/dl (32.0-37.0); MEAN PLATELET VOLUME 10.8 fl (7.4-10.4); MONOCYTE # 0.6 10^3/ul (0.3-0.9); MONOCYTES % 11.3 % (0.0-11.0); NEUTROPHIL # 3.6 10^3/ul (1.6-7.5); NEUTROPHILS % 73.4 % (39.0-77.0); PLATELET COUNT 103 10^3/UL (140-415); RED BLOOD COUNT 3.03 10^6/ul (4.70-6.10); RED CELL DISTRIBUTION WIDTH 14.5 % (11.5-14.5)
[2018-09-28] MEDS: PANTOPRAZOLE (EC) 40 MG TAB PO (05:59)
[2018-09-28 06:41] LABS: ALANINE AMINOTRANSFERASE 22 IU/L (13-69); ALBUMIN/GLOBULIN RATIO 1.33; ALKALINE PHOSPHATASE 107 IU/L (42-121); ANION GAP 14 (5-13); ASPARTATE AMINO TRANSFERASE 19 IU/L (15-46); BILIRUBIN,INDIRECT 0.4 mg/dl (0-1.1); BILIRUBIN,TOTAL 0.4 mg/dl (0.2-1.3); BLOOD UREA NITROGEN 38 mg/dl (7-20); CALCIUM 8.3 mg/dl (8.4-10.2); CARBON DIOXIDE 28 mmol/L (21-31); CHLORIDE 98 mmol/L (97-110); CREATININE 6.77 mg/dl (0.61-1.24); Estimated GFR 9 mL/min (>60); GLUCOSE 74 mg/dl (70-220); PHOSPHORUS 6.1 mg/dl (2.5-4.9); POTASSIUM 4.2 mmol/L (3.5-5.1); SODIUM 140 mmol/L (135-144)
[2018-09-28] MEDS: SEVELAMER CARBONATE 800 MG TABLET PO ×2 (08:00→12:35)
[2018-09-28] MEDS: MULTIVIT/CA CARB/B CMPLX/FA TAB PO (09:00)
[2018-09-28] MEDS: NEBIVOLOL 5 MG TAB PO (09:00)
== END 2018-09-28 14:00 | disposition home or self-care (01) | DRG 640 ==
LOC: E/R 22:34 → 6WM 09-25 01:35
PROC: 5A1D70Z Performance of Urinary Filtration, Intermittent, Less than 6 Hours Per Day (ICD-10-PCS; principal; 2018-09-27)
DX: E83.51 Hypocalcemia (principal); N18.6 End stage renal disease; I12.0 Hypertensive chronic kidney disease with stage 5 chronic kidney disease or end stage renal disease; R25.3 Fasciculation; E21.2 Other hyperparathyroidism; B02.9 Zoster without complications; E83.39 Other disorders of phosphorus metabolism; E11.22 Type 2 diabetes mellitus with diabetic chronic kidney disease; E11.69 Type 2 diabetes mellitus with other specified complication; E78.5 Hyperlipidemia, unspecified; F09 Unspecified mental disorder due to known physiological condition; Z99.2 Dependence on renal dialysis; T38.0X5A Adverse effect of glucocorticoids and synthetic analogues, initial encounter; Z87.01 Personal history of pneumonia (recurrent); Z87.19 Personal history of other diseases of the digestive system; D63.1 Anemia in chronic kidney disease
CPT/HCPCS: 36415; 70450; 71045; 80053; 80061; 80307; 82150; 82306; 82330; 83036; 83690; 83735; 83970; 84100; 84443; 84484; 85025; 87340; 90935; 93005; 96374; 99285-25